=== PATIENT | male | born 1950 | race Caucasian/White ===

== ENCOUNTER 2016-10-01 13:13 | Inpatient (IN) | payer OTHER, MEDICARE ==
[2016-10-01] MEDS ORDERED: LABETALOL 5 MG/ML VIAL MDV IVP STA ×2 (13:30→15:42)
[2016-10-01] MEDS ORDERED: MORPHINE SULFATE 4 MG/ML SYRINGE IVP STA ×2 (13:30→14:41)
[2016-10-01] MEDS ORDERED: SODIUM CHLORIDE 0.9% 500 ML IV STA (13:30)
--- NOTE | 2016-10-01 13:33 | ED ---
General Adult HPI - General Chief complaint: Recheck/Abnormal Lab/Rx Stated complaint: HTN Time Seen by Provider: 10/01/16 13:14 Source: patient, EMS, RN notes reviewed, old records reviewed Mode of arrival: EMS Limitations: no limitations - History of Present Illness Initial comments: This is a 66-year-old male to the ER today for evaluation. This man presents for evaluation regarding her blood pressure noncontrolled pain. Patient Gris history of back pain history of chronic pain history of elevated blood pressure. States that his medication there were no help. He was in follow-up with neurologist as he is attempting to come off pain medications but still complaining of severe pain and severely elevated blood pressure. He was sent here for evaluation regarding elevated blood pressure of care than 200 systolic over 100 diastolic - Related Data Home Medications Medication Instructions Recorded Confirmed Carvedilol [Coreg] 12.5 mg PO BID 10/01/16 10/01/16 Gabapentin [Neurontin] 300 mg PO HS 10/01/16 10/01/16 Losartan Potassium 100 mg PO DAILY 10/01/16 10/01/16 fentaNYL [Duragesic 25MCG/HR] 25 mcg TRANSDERM Q72H 10/01/16 10/01/16 oxyCODONE-APAP 10-325MG [Percocet 1 tab PO Q6HR PRN 10/01/16 10/01/16 10-325 mg] Allergies Allergy/AdvReac Type Severity Reaction Status Date / Time No Known Allergies Allergy Unverified 10/01/16 13:57 Review of Systems ROS Statement: Those systems with pertinent positive or pertinent negative responses have been documented in the HPI. ROS Other: All systems not noted in ROS Statement are negative. Past Medical History Past Medical History: Hypertension Additional Past Medical History / Comment(s): chronic leg pain History of Any Multi-Drug Resistant Organisms: None Reported Past Surgical History: Orthopedic Surgery Past Psychological History: No Psychological Hx Reported Smoking Status: Current every day smoker Past Alcohol Use History: None Reported Past Drug Use History: None Reported General Exam Limitations: no limitations General appearance: alert, in no apparent distress Head exam: Present: atraumatic, normocephalic, normal inspection Eye exam: Present: normal appearance, PERRL, EOMI. Absent: scleral icterus, conjunctival injection, periorbital swelling ENT exam: Present: normal exam, mucous membranes moist Neck exam: Present: normal inspection. Absent: tenderness, meningismus, lymphadenopathy Respiratory exam: Present: normal lung sounds bilaterally. Absent: respiratory distress, wheezes, rales, rhonchi, stridor Cardiovascular Exam: Present: regular rate, normal rhythm, normal heart sounds. Absent: systolic murmur, diastolic murmur, rubs, gallop, clicks GI/Abdominal exam: Present: soft, normal bowel sounds. Absent: distended, tenderness, guarding, rebound, rigid Extremities exam: Present: normal inspection, full ROM, normal capillary refill. Absent: tenderness, pedal edema, joint swelling, calf tenderness Back exam: Present: normal inspection Neurological exam: Present: alert, oriented X3, CN II-XII intact Psychiatric exam: Present: normal affect, normal mood Skin exam: Present: warm, dry, intact, normal color. Absent: rash Course Vital Signs 10/01/16 10/01/16 10/01/16 13:18 13:23 13:55 Temperature 98.3 F Pulse Rate 65 74 69 Respiratory 18 18 Rate Blood Pressure 246/126 263/129 208/105 O2 Sat by Pulse 96 99 Oximetry 10/01/16 14:41 Temperature Pulse Rate 64 Respiratory 18 Rate Blood Pressure 233/113 O2 Sat by Pulse 97 Oximetry - Reevaluation(s) Reevaluation #1: 10/01/16 14:56 Syrup pressures removing with multiple medications Reevaluation #2: 10/01/16 14:56 Blood pressure improves the pain control Medical Decision Making - Medical Decision Making 66 now with recurrent pain medication withdrawal, severe pain as well as severe elevated blood pressure. Patient's blood pressure is 1 wanted control at this time. Patient will be discharged home - Lab Data Result diagrams: 10/01/16 13:43 10/01/16 13:43 Lab Results 10/01/16 10/01/16 Range/Units 13:43 13:43 WBC 9.6 (3.8-10.6) k/uL RBC 5.38 (4.30-5.90) m/uL Hgb 17.4 (13.0-17.5) gm/dL Hct 52.0 (39.0-53.0) % MCV 96.7 (80.0-100.0) fL MCH 32.3 (25.0-35.0) pg MCHC 33.4 (31.0-37.0) g/dL RDW 14.1 (11.5-15.5) % Plt Count 145 L (150-450) k/uL Neutrophils % 68 % Lymphocytes % 21 % Monocytes % 4 % Eosinophils % 5 % Basophils % 1 % Neutrophils # 6.5 (1.3-7.7) k/uL Lymphocytes # 2.0 (1.0-4.8) k/uL Monocytes # 0.4 (0-1.0) k/uL Eosinophils # 0.5 (0-0.7) k/uL Basophils # 0.1 (0-0.2) k/uL Sodium 141 (137-145) mmol/L Potassium 3.9 (3.5-5.1) mmol/L Chloride 105 (98-107) mmol/L Carbon Dioxide 27 (22-30) mmol/L Anion Gap 9 mmol/L BUN 15 (9-20) mg/dL Creatinine 0.97 (0.66-1.25) mg/dL Est GFR (MDRD) Af Amer >60 (>60 ml/min/1.73 sqM) Est GFR (MDRD) Non-Af >60 (>60 ml/min/1.73 sqM) Glucose 115 H (74-99) mg/dL Calcium 9.3 (8.4-10.2) mg/dL Phosphorus 3.2 (2.5-4.5) mg/dL Magnesium 1.9 (1.6-2.3) mg/dL Total Bilirubin 0.8 (0.2-1.3) mg/dL AST 30 (17-59) U/L ALT 42 (21-72) U/L Alkaline Phosphatase 67 (38-126) U/L Total Protein 6.8 (6.3-8.2) g/dL Albumin 4.1 (3.5-5.0) g/dL Disposition Clinical Impression: Hypertensive urgency Disposition: HOME SELF-CARE Condition: Good Instructions: Hypertension (ED), Hypertensive Crisis (ED), Chronic Hypertension (ED) Referrals: Valentine Langston MD [Primary Care Provider] - 1-2 days
[2016-10-01 13:56] LABS: Basophils # (A) 0.1 k/uL (0-0.2); Basophils % (A) 1 %; CHCM 35.2; Eosinophils # (A) 0.5 k/uL (0-0.7); Eosinophils % (A) 5 %; HDW 2.45; HGB 17.4 gm/dL (13.0-17.5); Luc # (Auto) 0.09; Luc % (Auto) 1; Lymphocytes % (A) 21 %; MCH 32.3 pg (25.0-35.0); MCHC 33.4 g/dL (31.0-37.0); MCV 96.7 fL (80.0-100.0); Mean Platelet Volume 8.1; Monocytes # (A) 0.4 k/uL (0-1.0); Monocytes % (A) 4 %; Neutrophils # (A) 6.5 k/uL (1.3-7.7); Neutrophils % (A) 68 %; RBC 5.38 m/uL (4.30-5.90); RDW 14.1 % (11.5-15.5); WBC 9.6 k/uL (3.8-10.6); WBC (Perox) 8.68
[2016-10-01 14:06] LABS: ALT 42 U/L (21-72); AST 30 U/L (17-59); Alkaline Phosphatase 67 U/L (38-126); Anion Gap 9 mmol/L; Blood Urea Nitrogen 15 mg/dL (9-20); Calcium 9.3 mg/dL (8.4-10.2); Carbon Dioxide 27 mmol/L (22-30); Chloride 105 mmol/L (98-107); Glucose 115 mg/dL (74-99); Magnesium 1.9 mg/dL (1.6-2.3); Non-African American GFR(MDRD) >60 (>60 ml/min/1.73 sqM); Phosphorous 3.2 mg/dL (2.5-4.5); Potassium 3.9 mmol/L (3.5-5.1); Sodium 141 mmol/L (137-145); Total Bilirubin 0.8 mg/dL (0.2-1.3); Total Protein 6.8 g/dL (6.3-8.2)
[2016-10-01] MEDS ORDERED: hydrALAZINE HCL 20 MG/ML 1 ML VIAL IVP STA (14:41)
[2016-10-01] MEDS ORDERED: cloNIDine HCL 0.1 MG TAB PO STA (14:41)
--- NOTE | 2016-10-01 14:57 | XR ---
EXAMINATION TYPE: XR chest 2V DATE OF EXAM: 10/01/2016 COMPARISON: NONE HISTORY: Weakness, hypertension TECHNIQUE: Frontal and lateral views of the chest are obtained on 3 images. FINDINGS: There is no focal air space opacity, pleural effusion, or pneumothorax seen. The cardiac silhouette size is within normal limits. There are overlying cardiac leads. There is a spinal curvat ure. Prominent lung volume could be indicative of COPD. The osseous structures are intact. IMPRESSION: No acute cardiopulmonary process.
[2016-10-01] MEDS ORDERED: HYDROmorphone 1 MG/ML 1 ML SYRINGE IVP STA (15:42)
[2016-10-01] MEDS ORDERED: hydrALAZINE HCL 20 MG/ML 1 ML VIAL IVP PRN (16:25)
[2016-10-01] MEDS ORDERED: ENALAPRILAT 1.25 MG/ML 1 ML VIAL IVP STA (16:25)
[2016-10-01] MEDS ORDERED: SODIUM CHLORIDE 0.9% 1,000 ML IV ONE (16:26)
--- NOTE | 2016-10-01 16:29 | ED ---
Medical Decision Making - Medical Decision Making 66 not ER for evaluation of elevated blood pressure with continued elevated blood pressure despite multiple oral and IV medications here in emergency room, patient will be admitted for stricter blood pressure control, will consult Dr. Laguna's patient does see Dr. Gamboa so far an outpatient basis regarding severely elevated blood pressure - Lab Data Result diagrams: 10/03/16 04:31 10/03/16 04:31 Lab Results 10/01/16 10/01/16 Range/Units 13:43 13:43 WBC 9.6 (3.8-10.6) k/uL RBC 5.38 (4.30-5.90) m/uL Hgb 17.4 (13.0-17.5) gm/dL Hct 52.0 (39.0-53.0) % MCV 96.7 (80.0-100.0) fL MCH 32.3 (25.0-35.0) pg MCHC 33.4 (31.0-37.0) g/dL RDW 14.1 (11.5-15.5) % Plt Count 145 L (150-450) k/uL Neutrophils % 68 % Lymphocytes % 21 % Monocytes % 4 % Eosinophils % 5 % Basophils % 1 % Neutrophils # 6.5 (1.3-7.7) k/uL Lymphocytes # 2.0 (1.0-4.8) k/uL Monocytes # 0.4 (0-1.0) k/uL Eosinophils # 0.5 (0-0.7) k/uL Basophils # 0.1 (0-0.2) k/uL Sodium 141 (137-145) mmol/L Potassium 3.9 (3.5-5.1) mmol/L Chloride 105 (98-107) mmol/L Carbon Dioxide 27 (22-30) mmol/L Anion Gap 9 mmol/L BUN 15 (9-20) mg/dL Creatinine 0.97 (0.66-1.25) mg/dL Est GFR (MDRD) Af Amer >60 (>60 ml/min/1.73 sqM) Est GFR (MDRD) Non-Af >60 (>60 ml/min/1.73 sqM) Glucose 115 H (74-99) mg/dL Calcium 9.3 (8.4-10.2) mg/dL Phosphorus 3.2 (2.5-4.5) mg/dL Magnesium 1.9 (1.6-2.3) mg/dL Total Bilirubin 0.8 (0.2-1.3) mg/dL AST 30 (17-59) U/L ALT 42 (21-72) U/L Alkaline Phosphatase 67 (38-126) U/L Total Protein 6.8 (6.3-8.2) g/dL Albumin 4.1 (3.5-5.0) g/dL Disposition Clinical Impression: Hypertensive urgency, Uncontrolled hypertension Disposition: ADMITTED IP TO THIS [facility] Condition: Good
[2016-10-01] MEDS ORDERED: cloNIDine 0.3 MG/24HR PATCH 1 PATCH PATCH TRANSDERM SCH (16:30)
[2016-10-01 21:00] VITALS: BMI 25.0
[2016-10-01] MEDS: FUROSEMIDE 10 MG/ML 2 ML VIAL IV SCH (21:35)
[2016-10-01] MEDS: HYDROmorphone 1 MG/ML 1 ML SYRINGE IVP PRN (22:47)
[2016-10-02 04:48] LABS: CH 32.5; CHCM 34.5; HCT 47.7 % (39.0-53.0); HDW 2.46; HGB 16.3 gm/dL (13.0-17.5); MCH 32.2 pg (25.0-35.0); MCHC 34.1 g/dL (31.0-37.0); MCV 94.5 fL (80.0-100.0); Mean Platelet Volume 7.7; RBC 5.04 m/uL (4.30-5.90); RDW 13.1 % (11.5-15.5); WBC 7.8 k/uL (3.8-10.6)
[2016-10-02 05:03] LABS: Anion Gap 8 mmol/L; Blood Urea Nitrogen 16 mg/dL (9-20); Calcium 9.1 mg/dL (8.4-10.2); Carbon Dioxide 29 mmol/L (22-30); Chloride 104 mmol/L (98-107); Glucose 99 mg/dL (74-99); Magnesium 1.9 mg/dL (1.6-2.3); Non-African American GFR(MDRD) >60 (>60 ml/min/1.73 sqM); Phosphorous 3.6 mg/dL (2.5-4.5); Potassium 3.2 mmol/L (3.5-5.1); Sodium 141 mmol/L (137-145)
[2016-10-02] MEDS: HYDROmorphone 1 MG/ML 1 ML SYRINGE IVP PRN ×2 (08:04→16:13)
[2016-10-02] MEDS: ENOXAPARIN 40 MG/0.4 ML SYRINGE SQ SCH (08:06)
[2016-10-02] MEDS: POTASSIUM CHLORIDE ER 20 MEQ TAB.ER PO SCH ×2 (08:06→10:04)
[2016-10-02] MEDS ORDERED: LOSARTAN 50 MG TAB PO SCH (09:45)
[2016-10-02] MEDS ORDERED: LABETALOL 5 MG/ML VIAL MDV IVP PRN (09:47)
[2016-10-02] MEDS: CARVEDILOL 12.5 MG TAB PO SCH ×2 (10:04→17:45)
[2016-10-02] MEDS: CLEVIDIPINE BUTYRATE 25 MG in EMPTY BAG 1 BAG IV SCH ×2 (10:05→12:58)
[2016-10-02] MEDS: SODIUM CHLORIDE 0.9% 1,000 ML IV SCH (10:07)
[2016-10-02 10:19] LABS: Creatine Kinase 110 U/L (55-170)
--- NOTE | 2016-10-02 10:22 | P.CNPUL ---
History of Present Illness Consult date: 10/02/16 Reason for consult: other Chief complaint: Elevated blood pressure History of present illness: Consult dated 10/02/2016 This a very pleasant 66-year-old male with a history of chronic pain and hypertension. Previously was on Coreg 12.5 mg twice a day and losartan 100 mg for his blood pressure control. Apparently the patient been somewhat noncompliant with medications and apparently was noted to have very high blood pressures in the emergency room. He satisfied all the criteria for hypertensive urgency/emergency. There was no apparent end organ involvement so is more likely hypertensive urgency. His systolic blood pressure was more than 200 and his diastolic blood pressure was more than 100. He denies any chest pain chest discomfort no shortness of breath no visual disturbance no dizziness no headache no blurred vision. No chest pain or no other complaints for that matter. Nothing that would suggest hypertensive emergency. The patient's currently resting comfortably in the ICU. He was apparently seen by one of the ER doctors yesterday. I was never called about the admission. I did alert Dr. Quijano about this. Review of Systems A 12 point review of systems is essentially negative save for chronic pain. Past Medical History Past Medical History: Hyperlipidemia, Hypertension Additional Past Medical History / Comment(s): chronic leg pain History of Any Multi-Drug Resistant Organisms: None Reported Past Surgical History: Orthopedic Surgery Past Psychological History: No Psychological Hx Reported Smoking Status: Former smoker Past Alcohol Use History: None Reported Past Drug Use History: None Reported Medications and Allergies Home Medications Medication Instructions Recorded Confirmed Type Carvedilol [Coreg] 12.5 mg PO BID 10/01/16 10/01/16 History Gabapentin [Neurontin] 300 mg PO HS 10/01/16 10/01/16 History Losartan Potassium 100 mg PO DAILY 10/01/16 10/01/16 History fentaNYL [Duragesic 25MCG/HR] 25 mcg TRANSDERM Q72H 10/01/16 10/01/16 History oxyCODONE-APAP 10-325MG [Percocet 1 tab PO Q6HR PRN 10/01/16 10/01/16 History 10-325 mg] Allergies Allergy/AdvReac Type Severity Reaction Status Date / Time No Known Allergies Allergy Unverified 10/01/16 13:57 Physical Exam Osteopathic Statement: *. No significant issues noted on an osteopathic structural exam other than those noted in the History and Physical/Consult. Vitals: Vital Signs Temp Pulse Pulse Resp BP BP Pulse Ox 10/02/16 10:00 67 17 200/97 98 10/02/16 09:45 68 15 237/108 92 L 10/02/16 09:30 69 22 205/103 97 10/02/16 09:00 67 11 L 169/95 10/02/16 08:00 98.5 F 57 L 17 205/105 98 10/02/16 07:10 51 L 9 L 169/87 97 10/02/16 07:00 48 L 8 L 166/95 98 10/02/16 06:50 51 L 11 L 166/95 97 10/02/16 06:40 48 L 166/95 96 10/02/16 06:30 47 L 190/88 96 10/02/16 06:20 55 L 190/88 96 10/02/16 06:10 50 L 190/88 98 10/02/16 06:00 53 L 12 159/97 97 10/02/16 05:50 51 L 10 L 159/97 97 10/02/16 05:40 63 9 L 159/97 97 10/02/16 05:30 51 L 12 183/94 97 10/02/16 05:20 48 L 10 L 183/94 97 10/02/16 05:10 50 L 7 L 183/94 99 10/02/16 05:00 49 L 13 189/88 96 10/02/16 04:50 47 L 11 L 189/88 97 10/02/16 04:40 49 L 10 L 189/88 95 10/02/16 04:30 176/91 10/02/16 04:20 176/91 95 10/02/16 04:10 48 L 11 L 176/91 97 10/02/16 04:00 56 L 12 186/79 97 10/02/16 03:50 51 L 11 L 186/79 97 10/02/16 03:40 53 L 13 173/79 97 10/02/16 03:30 53 L 17 169/93 98 10/02/16 03:20 51 L 9 L 169/93 98 10/02/16 03:10 63 29 H 155/72 94 L 10/02/16 03:00 51 L 8 L 168/85 97 10/02/16 02:50 50 L 12 168/85 97 10/02/16 02:40 54 L 11 L 140/74 94 L 10/02/16 02:30 54 L 11 L 141/76 94 L 10/02/16 02:20 56 L 11 L 141/76 94 L 10/02/16 02:10 55 L 10 L 155/83 95 10/02/16 02:00 56 L 11 L 159/82 94 L 10/02/16 01:50 60 11 L 159/82 94 L 10/02/16 01:40 62 15 171/83 94 L 10/02/16 01:30 54 L 11 L 155/84 95 10/02/16 01:20 54 L 11 L 155/84 94 L 10/02/16 01:10 58 L 11 L 149/72 97 10/02/16 01:00 55 L 12 145/76 96 10/02/16 00:50 55 L 9 L 145/76 97 10/02/16 00:40 56 L 12 167/84 97 10/02/16 00:30 57 L 11 L 161/84 97 10/02/16 00:20 54 L 13 161/84 97 10/02/16 00:10 58 L 10 L 176/80 96 10/02/16 00:00 61 15 164/84 95 10/01/16 23:50 58 L 12 164/84 95 10/01/16 23:40 54 L 11 L 168/84 97 10/01/16 23:30 57 L 11 L 164/83 97 10/01/16 23:20 58 L 12 164/83 96 10/01/16 23:10 60 14 162/85 96 10/01/16 23:00 65 11 L 171/88 97 10/01/16 22:50 65 11 L 171/88 97 10/01/16 22:40 61 12 180/94 98 10/01/16 22:30 61 15 190/100 97 10/01/16 22:20 62 12 190/100 98 10/01/16 22:10 190/100 10/01/16 22:00 61 177/91 98 10/01/16 21:50 63 14 177/91 98 10/01/16 21:40 63 19 207/113 97 10/01/16 21:30 66 19 189/96 99 10/01/16 21:20 66 16 189/96 99 10/01/16 21:19 65 30 H 189/96 99 10/01/16 21:10 70 27 H 197/93 99 10/01/16 21:00 71 14 176/92 99 10/01/16 20:50 75 47 H 176/92 94 L 10/01/16 20:40 60 15 172/100 98 10/01/16 20:30 58 L 14 176/89 98 10/01/16 20:20 66 13 176/89 97 10/01/16 20:10 67 15 210/91 97 10/01/16 20:00 69 12 183/92 98 10/01/16 19:50 70 12 183/92 97 10/01/16 19:40 66 16 156/83 98 10/01/16 19:30 66 18 163/82 98 10/01/16 19:20 72 16 163/82 97 10/01/16 19:10 68 18 173/91 98 10/01/16 19:00 99.1 F 66 17 163/90 97 10/01/16 18:50 65 15 163/90 96 10/01/16 18:40 65 11 L 164/87 97 10/01/16 18:30 83 12 180/96 98 10/01/16 18:20 71 10 L 180/96 98 10/01/16 18:17 98.5 F 65 20 176/92 10/01/16 18:16 65 10/01/16 18:10 71 18 161/92 95 10/01/16 17:39 69 18 187/89 97 10/01/16 17:23 67 18 190/94 96 10/01/16 17:05 70 18 206/104 97 10/01/16 16:36 68 18 202/106 97 10/01/16 16:05 68 18 213/111 98 10/01/16 15:56 68 18 223/109 99 10/01/16 14:55 66 18 226/108 97 10/01/16 14:41 64 18 233/113 97 10/01/16 13:55 69 208/105 10/01/16 13:23 74 18 263/129 99 10/01/16 13:18 98.3 F 66 18 246/126 96 Intake and Output 10/01/16 10/02/16 10/02/16 22:59 06:59 14:59 Intake Total 300 800 240 Output Total 0 0 Balance 300 800 240 Intake: IV 140 Sodium Chloride 0.9% 1, 120 000 ml @ 100 mls/hr IV . Q10H ONE Rx#:[id number] Sodium Chloride 0.9% 1, 20 000 ml @ 20 mls/hr IV . Q24H [place] Rx#:[id number] Intake, IV Titration 300 800 100 Amount Sodium Chloride 0.9% 1, 300 800 100 000 ml @ 100 mls/hr IV . Q10H ONE Rx#:[id number] Output: Urine 0 0 Other: Voiding Method Toilet Toilet Toilet # Voids 1 0 1 Weight 86.183 kg 75.7 kg No acute distress, oriented 3. HEENT examination is grossly unremarkable. Mucous membranes are moist. No oral lesions. Neck supple. Full range of motion. No adenopathy or megaly. Cardiovascular examination reveals regular rhythm rate. S1-S2 normal. No S3- S4 or murmur. Lungs reveal diminished breath sounds. No wheezes or rhonchi. No crackles. Abdomen soft bowel sounds are heard. No masses or tenderness. Extremities are intact. No cyanosis clubbing or edema. Skin without rash. Neurologic examination is nonfocal. Results - Laboratory Findings CBC and BMP: 10/02/16 04:10 10/02/16 04:10 Abnormal lab findings: Abnormal Labs 10/01/16 10/01/16 10/02/16 13:43 13:43 04:10 Plt Count 145 L 140 L Potassium Glucose 115 H 10/02/16 04:10 Plt Count Potassium 3.2 L Glucose - Diagnostic Findings Chest x-ray: image reviewed (Labs x-rays a medications are all reviewed.) Assessment and Plan (1) Hypertensive urgency Status: Acute (2) Uncontrolled hypertension Status: Acute Plan: Plan dated 10/02/2016 The patient's currently not on any supplemental oxygen. His IV is appointment 900 mL an hour. He'll be turned down to KVO. We'll put him on Klonopin the Pleurx to titrate blood pressure to less than 160 systolic and less than 110 diastolic. The patient will have a cardiology consultation and echocardiogram. We'll do some cardiac enzymes. We'll DC the hydralazine and the clonidine patch. We'll use IV labetalol for additional blood pressure support. We'll get him back on his Coreg 12.5 mg twice a day and losartan 100 mg a day. Time with Patient: Greater than 30
[2016-10-02 10:33] LABS: Troponin I <0.012 ng/mL (0.000-0.034)
[2016-10-02 10:44] LABS: Creatine Kinase MB 1.7 ng/mL (0.0-2.4)
[2016-10-02] MEDS ORDERED: LOSARTAN 50 MG TAB PO STA (11:26)
--- NOTE | 2016-10-02 12:04 | P.CRDCN ---
History of Present Illness Consult reason: hypertension History of present illness: 66-year-old male patient who presented with elevated blood pressures. He states he was taking his blood pressure medications including losartan 100 mg by mouth daily and carvedilol 12.5 mg twice daily. He was tapering off his fentanyl. He denied any chest discomfort no undue shortness of breath he had no headache no blurring of vision no neurologic symptoms no shortness of breath. Currently his blood pressure is still elevated between 170 290 mmHg systolic. He is on an IV drip to control his blood pressure he is asymptomatic and lying comfortably He is a current smoker, denies alcohol use Past history of dyslipidemia and hypertension and chronic leg pain on multiple pain medications NO KNOWN DRUG ALLERGIES Review of systems: No fever chills or rigors, no cough, phlegm or expectoration , no nausea, vomiting or diarrhea, no hematuria, dysuria, no musculoskeletal complaints, no strokes or seizures, no skin lesions. On examination his blood pressure is elevated as stated heart rates are in the normal range with occasional PVCs, apparently carvedilol was started at [facility] for PVCs after the coronary angiogram which showed normal coronary arteries several years back Head negative examination is normal no JVD no thyromegaly no carotid bruits Normal heart sounds normal S1 normal S2 no murmurs no gallops no rub Breath sounds are normal no rhonchi no crackles Abdomen soft nontender There are no abdominal bruits noted Extremities warm no edema Impression Hypertensive urgency No evidence for acute systolic dysfunction, acute renal failure, acute neurologic symptoms Dyslipidemia Suggest Increase losartan to 150 mg by mouth daily in the morning Add amlodipine 10 mg by mouth daily in the evening Continue carvedilol 12.5 mg twice daily Renal artery Dopplers, serum metanephrines, aldosterone, cortisol him a TSH and lipid panel 2-D echo and Doppler study today Continue ICU monitoring today Past Medical History Past Medical History: Hyperlipidemia, Hypertension Additional Past Medical History / Comment(s): chronic leg pain History of Any Multi-Drug Resistant Organisms: None Reported Past Surgical History: Orthopedic Surgery Past Psychological History: No Psychological Hx Reported Smoking Status: Former smoker Past Alcohol Use History: None Reported Past Drug Use History: None Reported Medications and Allergies Home Medications Medication Instructions Recorded Confirmed Type Carvedilol [Coreg] 12.5 mg PO BID 10/01/16 10/01/16 History Gabapentin [Neurontin] 300 mg PO HS 10/01/16 10/01/16 History RX: Losartan Potassium 100 mg PO DAILY 10/01/16 10/01/16 History fentaNYL [Duragesic 25MCG/HR] 25 mcg TRANSDERM Q72H 10/01/16 10/01/16 History oxyCODONE-APAP 10-325MG [Percocet 1 tab PO Q6HR PRN 10/01/16 10/01/16 History 10-325 mg] Allergies Allergy/AdvReac Type Severity Reaction Status Date / Time No Known Allergies Allergy Unverified 10/01/16 13:57 Physical Exam Vitals: Vital Signs Temp Pulse Pulse Resp BP BP Pulse Ox 10/02/16 10:00 67 17 200/97 98 10/02/16 09:45 68 15 237/108 92 L 10/02/16 09:30 69 22 205/103 97 10/02/16 09:00 67 11 L 169/95 10/02/16 08:00 98.5 F 57 L 17 205/105 98 10/02/16 07:10 51 L 9 L 169/87 97 10/02/16 07:00 48 L 8 L 166/95 98 10/02/16 06:50 51 L 11 L 166/95 97 10/02/16 06:40 48 L 166/95 96 10/02/16 06:30 47 L 190/88 96 10/02/16 06:20 55 L 190/88 96 10/02/16 06:10 50 L 190/88 98 10/02/16 06:00 53 L 12 159/97 97 10/02/16 05:50 51 L 10 L 159/97 97 10/02/16 05:40 63 9 L 159/97 97 10/02/16 05:30 51 L 12 183/94 97 10/02/16 05:20 48 L 10 L 183/94 97 10/02/16 05:10 50 L 7 L 183/94 99 10/02/16 05:00 49 L 13 189/88 96 10/02/16 04:50 47 L 11 L 189/88 97 10/02/16 04:40 49 L 10 L 189/88 95 10/02/16 04:30 176/91 10/02/16 04:20 176/91 95 10/02/16 04:10 48 L 11 L 176/91 97 10/02/16 04:00 56 L 12 186/79 97 10/02/16 03:50 51 L 11 L 186/79 97 10/02/16 03:40 53 L 13 173/79 97 10/02/16 03:30 53 L 17 169/93 98 10/02/16 03:20 51 L 9 L 169/93 98 10/02/16 03:10 63 29 H 155/72 94 L 10/02/16 03:00 51 L 8 L 168/85 97 10/02/16 02:50 50 L 12 168/85 97 10/02/16 02:40 54 L 11 L 140/74 94 L 10/02/16 02:30 54 L 11 L 141/76 94 L 10/02/16 02:20 56 L 11 L 141/76 94 L 10/02/16 02:10 55 L 10 L 155/83 95 10/02/16 02:00 56 L 11 L 159/82 94 L 10/02/16 01:50 60 11 L 159/82 94 L 10/02/16 01:40 62 15 171/83 94 L 10/02/16 01:30 54 L 11 L 155/84 95 10/02/16 01:20 54 L 11 L 155/84 94 L 10/02/16 01:10 58 L 11 L 149/72 97 10/02/16 01:00 55 L 12 145/76 96 10/02/16 00:50 55 L 9 L 145/76 97 10/02/16 00:40 56 L 12 167/84 97 10/02/16 00:30 57 L 11 L 161/84 97 10/02/16 00:20 54 L 13 161/84 97 10/02/16 00:10 58 L 10 L 176/80 96 10/02/16 00:00 61 15 164/84 95 10/01/16 23:50 58 L 12 164/84 95 10/01/16 23:40 54 L 11 L 168/84 97 10/01/16 23:30 57 L 11 L 164/83 97 10/01/16 23:20 58 L 12 164/83 96 10/01/16 23:10 60 14 162/85 96 10/01/16 23:00 65 11 L 171/88 97 10/01/16 22:50 65 11 L 171/88 97 10/01/16 22:40 61 12 180/94 98 10/01/16 22:30 61 15 190/100 97 10/01/16 22:20 62 12 190/100 98 10/01/16 22:10 190/100 10/01/16 22:00 61 177/91 98 10/01/16 21:50 63 14 177/91 98 10/01/16 21:40 63 19 207/113 97 10/01/16 21:30 66 19 189/96 99 10/01/16 21:20 66 16 189/96 99 10/01/16 21:19 65 30 H 189/96 99 10/01/16 21:10 70 27 H 197/93 99 10/01/16 21:00 71 14 176/92 99 10/01/16 20:50 75 47 H 176/92 94 L 10/01/16 20:40 60 15 172/100 98 10/01/16 20:30 58 L 14 176/89 98 10/01/16 20:20 66 13 176/89 97 10/01/16 20:10 67 15 210/91 97 10/01/16 20:00 69 12 183/92 98 10/01/16 19:50 70 12 183/92 97 10/01/16 19:40 66 16 156/83 98 10/01/16 19:30 66 18 163/82 98 10/01/16 19:20 72 16 163/82 97 10/01/16 19:10 68 18 173/91 98 10/01/16 19:00 99.1 F 66 17 163/90 97 10/01/16 18:50 65 15 163/90 96 10/01/16 18:40 65 11 L 164/87 97 10/01/16 18:30 83 12 180/96 98 10/01/16 18:20 71 10 L 180/96 98 10/01/16 18:17 98.5 F 65 20 176/92 10/01/16 18:16 65 10/01/16 18:10 71 18 161/92 95 10/01/16 17:39 69 18 187/89 97 10/01/16 17:23 67 18 190/94 96 10/01/16 17:05 70 18 206/104 97 10/01/16 16:36 68 18 202/106 97 10/01/16 16:05 68 18 213/111 98 10/01/16 15:56 68 18 223/109 99 10/01/16 14:55 66 18 226/108 97 10/01/16 14:41 64 18 233/113 97 10/01/16 13:55 69 208/105 10/01/16 13:23 74 18 263/129 99 10/01/16 13:18 98.3 F 65 18 246/126 96 Intake and Output 10/01/16 10/02/16 10/02/16 22:59 06:59 14:59 Intake Total 300 800 274.700 Output Total 0 0 Balance 300 800 274.700 Intake: IV 160 Sodium Chloride 0.9% 1, 120 000 ml @ 100 mls/hr IV . Q10H [facility] Rx#:[id number] Sodium Chloride 0.9% 1, 40 000 ml @ 20 mls/hr IV . Q24H [place] Rx#:[id number] Intake, IV Titration 300 800 114.700 Amount Clevidipine Butyrate 25 14.700 mg In Empty Bag 1 bag @ 1 MG/HR 2 mls/hr IV .Q24H [place] Rx#:[id number] Sodium Chloride 0.9% 1, 300 800 100 000 ml @ 100 mls/hr IV . Q10H [facility] Rx#:[id number] Output: Urine 0 0 Other: Voiding Method Toilet Toilet Toilet # Voids 1 0 1 # Bowel Movements 1 Weight 86.183 kg 75.7 kg Results 10/02/16 04:10 10/02/16 04:10 Cardiac Enzymes 10/01/16 10/02/16 Range/Units 13:43 04:10 AST 30 (17-59) U/L CK-MB (CK-2) 1.7 (0.0-2.4) ng/mL Troponin I <0.012 (0.000-0.034) ng/mL CBC 10/01/16 10/02/16 Range/Units 13:43 04:10 WBC 9.6 7.8 (3.8-10.6) k/uL RBC 5.38 5.04 (4.30-5.90) m/uL Hgb 17.4 16.3 (13.0-17.5) gm/dL Hct 52.0 47.7 (39.0-53.0) % Plt Count 145 L 140 L (150-450) k/uL Comprehensive Metabolic Panel 10/01/16 10/02/16 Range/Units 13:43 04:10 Sodium 141 141 (137-145) mmol/L Potassium 3.9 3.2 L (3.5-5.1) mmol/L Chloride 105 104 (98-107) mmol/L Carbon Dioxide 27 29 (22-30) mmol/L BUN 15 16 (9-20) mg/dL Creatinine 0.97 1.10 (0.66-1.25) mg/dL Glucose 115 H 99 (74-99) mg/dL Calcium 9.3 9.1 (8.4-10.2) mg/dL AST 30 (17-59) U/L ALT 42 (21-72) U/L Alkaline Phosphatase 67 (38-126) U/L Total Protein 6.8 (6.3-8.2) g/dL Albumin 4.1 (3.5-5.0) g/dL Current Medications Generic Name Dose Route Start Last Admin Trade Name Freq PRN Reason Stop Dose Admin Amlodipine Besylate 10 mg 10/02/16 21:00 Norvasc PO HS [place] Carvedilol 12.5 mg 10/02/16 09:45 10/02/16 10:04 Coreg PO 12.5 mg AC-BID [place] Administration Enoxaparin Sodium 40 mg 10/02/16 09:00 10/02/16 08:06 Lovenox SQ 40 mg DAILY [place] Administration Hydromorphone HCl 1 mg 10/01/16 21:51 10/02/16 08:04 Dilaudid IVP 1 mg Q4HR PRN Administration Severe Pain Clevidipine 25 mg/ IV Solution 50 mls @ 2 mls/hr 10/02/16 10:00 10/02/16 11: 33 IV 6 mg/hr .Q24H [place] 12 mls/hr Protocol Titration 1 MG/HR Sodium Chloride 1,000 mls @ 20 mls/hr 10/02/16 10:00 10/02/16 10:07 Saline 0.9% IV 20 mls/hr .Q24H [place] Administration Labetalol HCl 20 mg 10/02/16 09:47 Trandate IVP Q2H PRN Blood Pressure - High Labetalol HCl 40 mg 10/02/16 09:47 Trandate IVP Q2H PRN Blood Pressure - High Losartan Potassium 150 mg 10/03/16 09:00 Cozaar PO DAILY [facility] Morphine Sulfate 4 mg 10/01/16 16:25 Morphine Sulfate (Inj) IVP Q4HR PRN Moderate Pain Intake and Output 10/01/16 10/02/16 10/02/16 22:59 06:59 14:59 Intake Total 300 800 274.700 Output Total 0 0 Balance 300 800 274.700 Intake: IV 160 Sodium Chloride 0.9% 1, 120 000 ml @ 100 mls/hr IV . Q10H [facility] Rx#:[id number] Sodium Chloride 0.9% 1, 40 000 ml @ 20 mls/hr IV . Q24H [facility] Rx#:[id number] Intake, IV Titration 300 800 114.700 Amount Clevidipine Butyrate 25 14.700 mg In Empty Bag 1 bag @ 1 MG/HR 2 mls/hr IV .Q24H [facility] Rx#:[id number] Sodium Chloride 0.9% 1, 300 800 100 000 ml @ 100 mls/hr IV . Q10H [facility] Rx#:[id number] Output: Urine 0 0 Other: Voiding Method Toilet Toilet Toilet # Voids 1 0 1 # Bowel Movements 1 Weight 86.183 kg 75.7 kg 10/02/16 04:10 10/02/16 04:10
[2016-10-02] MEDS: MORPHINE SULFATE 4 MG/ML SYRINGE IVP PRN ×2 (12:41→20:10)
[2016-10-02 13:09] LABS: Potassium 3.7 mmol/L (3.5-5.1)
--- NOTE | 2016-10-02 16:23 | P.HPIM ---
History of Present Illness H&P Date: 10/02/16 Chief Complaint: Hypertensive urgency sent from 's office Mr. Jones is a 66-year-old male with a known history of hypertension hyperlipidemia and chronic leg pain was sent from neurologists office with uncontrolled hypertension. Patient was found to be in hypertensive urgency when he came to ER. Patient does take Coreg and losartan at home. patient is on chronic pain medications with fentanyl patch and Percocet for his chronic leg pain. Patient was taking 100 g of fentanyl patch and has been cutting down to 25 g. Patient says that he had a work-related neck injury injury about 10 years back and will and has seen multiple physicians and also had imazings including the MRI previously. He went to see neurologist in the office for his right leg pain. Patient was found to have hypertensive urgency and was sent to ER. Patient has been taking blood pressure medications for the past 10 years. Patient otherwise denied any complaints of chest pain OF SHORT OF NO HEADACHE OR DIZZINESS. NO NAUSEA VOMITING OR ABDOMINAL PAIN. BREATH. No recent illnesses. Patient is currently being monitored in the MICU and being worked up for secondary hypertension. His TSH level is 0.461 and cortisol level 4 2-D echo and renal arterial duplex was ordered. Serum catecholamines and Aldosterone level was ordered. EKG showed sinus bradycardia with heart rate of 59 Chest x-ray showed no acute cardiopulmonary process. Review of Systems Constitutional: Patient denies any fever or chills . No generalized weakness or weight loss. Abdomen: Patient denied nausea vomiting and diarrhea and abdominal pain. Cardiovascular: Patient denies any chest pain or short of breath no palpitations. Respiratory: patient denied any cough is from production. No shortness of breath Neurologic: Patient denied any numbness or tingling headache. Musculoskeletal: Patient denies any complaints of joint swelling or deformity. Complains of leg pain and right-sided Skin: Negative Psychiatric: Negative Endocrine: No heat or cold intolerance. No recent weight gain. Genitourinary: No dysuria or hematuria. All other 14 point ROS negative except the above Past Medical History Past Medical History: Hyperlipidemia, Hypertension Additional Past Medical History / Comment(s): chronic leg pain History of Any Multi-Drug Resistant Organisms: None Reported Past Surgical History: Orthopedic Surgery Past Psychological History: No Psychological Hx Reported Smoking Status: Former smoker Past Alcohol Use History: None Reported Past Drug Use History: None Reported Medications and Allergies Home Medications Medication Instructions Recorded Confirmed Type Carvedilol [Coreg] 12.5 mg PO BID 10/01/16 10/01/16 History Gabapentin [Neurontin] 300 mg PO HS 10/01/16 10/01/16 History Losartan Potassium 100 mg PO DAILY 10/01/16 10/01/16 History fentaNYL [Duragesic 25MCG/HR] 25 mcg TRANSDERM Q72H 10/01/16 10/01/16 History oxyCODONE-APAP 10-325MG [Percocet 1 tab PO Q6HR PRN 10/01/16 10/01/16 History 10-325 mg] Allergies Allergy/AdvReac Type Severity Reaction Status Date / Time No Known Allergies Allergy Unverified 10/01/16 13:57 Physical Exam Vitals: Vital Signs Temp Pulse Pulse Resp BP BP Pulse Ox 10/02/16 14:00 74 14 149/80 10/02/16 13:45 78 25 H 158/82 10/02/16 13:30 76 15 157/78 10/02/16 13:15 75 16 170/87 10/02/16 13:00 69 26 H 193/93 97 10/02/16 12:45 72 17 174/93 10/02/16 12:30 77 18 152/81 10/02/16 12:15 65 13 150/79 10/02/16 12:00 98.3 F 70 26 H 159/82 98 10/02/16 11:45 73 16 159/81 10/02/16 11:15 76 18 167/83 10/02/16 11:00 69 16 168/84 92 L 10/02/16 10:45 75 16 166/82 10/02/16 10:30 69 17 187/91 10/02/16 10:15 65 18 195/92 10/02/16 10:00 67 17 200/97 98 10/02/16 09:45 68 15 237/108 92 L 10/02/16 09:30 69 22 205/103 97 10/02/16 09:00 67 11 L 169/95 10/02/16 08:00 98.5 F 57 L 17 205/105 98 10/02/16 07:10 51 L 9 L 169/87 97 10/02/16 07:00 48 L 8 L 166/95 98 10/02/16 06:50 51 L 11 L 166/95 97 10/02/16 06:40 48 L 166/95 96 10/02/16 06:30 47 L 190/88 96 10/02/16 06:20 55 L 190/88 96 10/02/16 06:10 50 L 190/88 98 10/02/16 06:00 53 L 12 159/97 97 10/02/16 05:50 51 L 10 L 159/97 97 10/02/16 05:40 63 9 L 159/97 97 10/02/16 05:30 51 L 12 183/94 97 10/02/16 05:20 48 L 10 L 183/94 97 10/02/16 05:10 50 L 7 L 183/94 99 10/02/16 05:00 49 L 13 189/88 96 10/02/16 04:50 47 L 11 L 189/88 97 10/02/16 04:40 49 L 10 L 189/88 95 10/02/16 04:30 176/91 10/02/16 04:20 176/91 95 10/02/16 04:10 48 L 11 L 176/91 97 10/02/16 04:00 56 L 12 186/79 97 10/02/16 03:50 51 L 11 L 186/79 97 10/02/16 03:40 53 L 13 173/79 97 10/02/16 03:30 53 L 17 169/93 98 10/02/16 03:20 51 L 9 L 169/93 98 10/02/16 03:10 63 29 H 155/72 94 L 10/02/16 03:00 51 L 8 L 168/85 97 10/02/16 02:50 50 L 12 168/85 97 10/02/16 02:40 54 L 11 L 140/74 94 L 10/02/16 02:30 54 L 11 L 141/76 94 L 10/02/16 02:20 56 L 11 L 141/76 94 L 10/02/16 02:10 55 L 10 L 155/83 95 10/02/16 02:00 56 L 11 L 159/82 94 L 10/02/16 01:50 60 11 L 159/82 94 L 10/02/16 01:40 62 15 171/83 94 L 10/02/16 01:30 54 L 11 L 155/84 95 10/02/16 01:20 54 L 11 L 155/84 94 L 10/02/16 01:10 58 L 11 L 149/72 97 10/02/16 01:00 55 L 12 145/76 96 10/02/16 00:50 55 L 9 L 145/76 97 10/02/16 00:40 56 L 12 167/84 97 10/02/16 00:30 57 L 11 L 161/84 97 10/02/16 00:20 54 L 13 161/84 97 10/02/16 00:10 58 L 10 L 176/80 96 10/02/16 00:00 61 15 164/84 95 10/01/16 23:50 58 L 12 164/84 95 10/01/16 23:40 54 L 11 L 168/84 97 10/01/16 23:30 57 L 11 L 164/83 97 10/01/16 23:20 58 L 12 164/83 96 10/01/16 23:10 60 14 162/85 96 10/01/16 23:00 65 11 L 171/88 97 10/01/16 22:50 65 11 L 171/88 97 10/01/16 22:40 61 12 180/94 98 10/01/16 22:30 61 15 190/100 97 10/01/16 22:20 62 12 190/100 98 10/01/16 22:10 190/100 10/01/16 22:00 61 177/91 98 10/01/16 21:50 63 14 177/91 98 10/01/16 21:40 63 19 207/113 97 10/01/16 21:30 66 19 189/96 99 10/01/16 21:20 66 16 189/96 99 10/01/16 21:19 65 30 H 189/96 99 10/01/16 21:10 70 27 H 197/93 99 10/01/16 21:00 71 14 176/92 99 10/01/16 20:50 75 47 H 176/92 94 L 10/01/16 20:40 60 15 172/100 98 10/01/16 20:30 58 L 14 176/89 98 10/01/16 20:20 66 13 176/89 97 10/01/16 20:10 67 15 210/91 97 10/01/16 20:00 69 12 183/92 98 10/01/16 19:50 70 12 183/92 97 10/01/16 19:40 66 16 156/83 98 10/01/16 19:30 66 18 163/82 98 10/01/16 19:20 72 16 163/82 97 10/01/16 19:10 68 18 173/91 98 10/01/16 19:00 99.1 F 66 17 163/90 97 10/01/16 18:50 65 15 163/90 96 10/01/16 18:40 65 11 L 164/87 97 10/01/16 18:30 83 12 180/96 98 10/01/16 18:20 71 10 L 180/96 98 10/01/16 18:17 98.5 F 65 20 176/92 10/01/16 18:16 65 10/01/16 18:10 71 18 161/92 95 10/01/16 17:39 69 18 187/89 97 10/01/16 17:23 67 18 190/94 96 10/01/16 17:05 70 18 206/104 97 10/01/16 16:36 68 18 202/106 97 10/01/16 16:05 68 18 213/111 98 10/01/16 15:56 68 18 223/109 99 10/01/16 14:55 66 18 226/108 97 10/01/16 14:41 64 18 233/113 97 Intake and Output 10/01/16 10/02/16 10/02/16 22:59 06:59 14:59 Intake Total 300 800 367.533 Output Total 0 0 Balance 300 800 367.533 Intake: IV 220 Sodium Chloride 0.9% 1, 120 000 ml @ 100 mls/hr IV . Q10H [facility] Rx#:[id number] Sodium Chloride 0.9% 1, 100 000 ml @ 20 mls/hr IV . Q24H [place] Rx#:[id number] Intake, IV Titration 300 800 147.533 Amount Clevidipine Butyrate 25 47.533 mg In Empty Bag 1 bag @ 1 MG/HR 2 mls/hr IV .Q24H [place] Rx#:[id number] Sodium Chloride 0.9% 1, 300 800 100 000 ml @ 100 mls/hr IV . Q10H [facility] Rx#:[id number] Output: Urine 0 0 Other: Voiding Method Toilet Toilet Toilet # Voids 1 0 1 # Bowel Movements 1 Weight 86.183 kg 75.7 kg PHYSICAL EXAMINATION: Patient is lying in the bed comfortably, no acute distress, awake alert and oriented.. HEENT: Normocephalic. Neck is supple. Pupils reactive. Nostrils clear. Oral cavity is moist. Ears reveal no drainage. Neck reveals no JVD, carotid bruits, or thyromegaly. CHEST EXAMINATION: Trachea is central. Symmetrical expansion. Lung escamilla clear to auscultation and percussion. CARDIAC: Normal S1, S2 with no gallops. No murmurs ABDOMEN: Soft. Bowel sounds normal. No organomegaly. No abdominal bruits. Extremities: reveal no edema. No clubbing or cyanosis Neurologically awake, alert, oriented x3 with well-coordinated movements. No focal deficits noted Skin: No rash or skin lesions. Psychiatric: Operative. Nonsuicidal Musculoskeletal: No joint swelling or deformity. Normal range of motion. Results CBC & Chem 7: 10/02/16 04:10 10/02/16 12:24 Labs: Abnormal Lab Results - Last 24 Hours (Table) 10/02/16 10/02/16 10/02/16 Range/Units 04:10 04:10 12:24 Plt Count 140 L (150-450) k/uL Potassium 3.2 L (3.5-5.1) mmol/L Triglycerides 167 H (<150) mg/dL Cholesterol 205 H (<200) mg/dL LDL Cholesterol, Calc 138 H (0-99) mg/dL HDL Cholesterol 34 L (40-60) mg/dL TSH 0.461 L (0.465-4.680) mIU/L Thrombosis Risk Factor Assmnt - Choose All That Apply Any of the Below Risk Factors Present?: No Other Risk Factors: Yes Each Risk Factor Represents 2 Points: Age 61-74 years Other congenital or acquired thrombophilia - If yes, enter type in comment: No Thrombosis Risk Factor Assessment Total Risk Factor Score: 2 Thrombosis Risk Factor Assessment Level: Low Risk Assessment and Plan Plan: #1 acute hypertensive urgency. #2 uncontrolled hypertension. Questionable noncompliance #3 hyperlipidemia. Patient refuses to take statins. Saying it makes his leg pain gets worse. #4 history of neck injury 10 years back. Patient says it is work-related. #5 chronic narcotic pain medication use, recently trying to wean off. #6 DVT prophylaxis. Plan Patient will be continued on current blood pressure medications. On Coreg, losartan and Norvasc. We will rule out secondary hypertension causes. And follow closely. Cardiology and pulmonary on board. Further recommendations based on the clinical course. Time with Patient: Greater than 30
[2016-10-02] MEDS ORDERED: Potassium Replacement Protocol 1 EACH MISC MISCELLANE PRN (19:14)
--- NOTE | 2016-10-02 19:45 | ECHOF ---
Referral Reason:HTN urgency MEASUREMENTS -------- HEIGHT: 182.9 cm WEIGHT: 75.3 kg BP: 159/78 IVSd: 1.4 cm (0.6 - 1.1) LVIDd: 4.7 cm (3.9 - 5.3) LVPWd: 1.3 cm (0.6 - 1.1) IVSs: 1.5 cm LVIDs: 3.6 cm LVPWs: 1.6 cm LA Diam: 3.2 cm (2.7 - 3.8) LAESV Index (A-L): 31.79 ml/m Ao Diam: 3.8 cm (2.0 - 3.7) AV Cusp: 1.5 cm (1.5 - 2.6) LA Diam: 3.2 cm (2.7 - 3.8) MV EXCURSION: 20.130 mm (> 18.000) MV EF SLOPE: 74 mm/s (70 - 150) EPSS: 0.2 cm MV E Panchito: 0.64 m/s MV DecT: 200 ms MV A Panchito: 0.98 m/s MV E/A Ratio: 0.66 RAP: 5.00 mmHg RVSP: 13.22 mmHg FINDINGS -------- Sinus rhythm. This was a technically adequate study. There is moderate concentric left ventricular hypertrophy. Overall left ventricular systolic function is normal with, an EF between 55 - 60 %. The right ventricle is normal in size. LA is midly dilated 29-33ml/m2. The right atrial size is normal. The aortic valve is trileaflet, and appears structurally normal. No aortic stenosis or regurgitation. Mild mitral annular calcification present. Mild mitral regurgitation is present. Mild tricuspid regurgitation present. There is no evidence of pulmonary hypertension. The right ventricular systolic pressure, as measured by Doppler, is 13.22mmHg. Trace/mild (physiologic) pulmonic regurgitation. The aortic root size is normal. There is no pericardial effusion. CONCLUSIONS -------- 1. There is moderate concentric left ventricular hypertrophy. 2. There is no pericardial effusion. 3. Overall left ventricular systolic function is normal with, an EF between 55 - 60 %. 4. LA is midly dilated 29-33ml/m2. 5. Mild mitral annular calcification present. 6. Mild mitral regurgitation is present. 7. Mild tricuspid regurgitation present. 8. There is no evidence of pulmonary hypertension. 9. The right ventricular systolic pressure, as measured by Doppler, is 13.22mmHg. 10. Trace/mild (physiologic) pulmonic regurgitation. TURN DOWN WORKER: Madiha Davenport RDCS
[2016-10-02] MEDS ORDERED: POTASSIUM CHLORIDE ER 20 MEQ TAB.ER PO SCH (20:00)
[2016-10-02] MEDS: amLODIPine 10 MG TAB PO SCH (20:08)
[2016-10-02] MEDS: FUROSEMIDE 10 MG/ML 2 ML VIAL IV SCH (20:11)
[2016-10-02] MEDS ORDERED: ATORVASTATIN 40 MG TAB PO SCH (21:00)
[2016-10-03] MEDS: LABETALOL 5 MG/ML VIAL MDV IVP PRN (01:50)
[2016-10-03] MEDS: HYDROmorphone 1 MG/ML 1 ML SYRINGE IVP PRN ×3 (01:51→21:19)
[2016-10-03 05:08] LABS: Anion Gap 8 mmol/L; Blood Urea Nitrogen 18 mg/dL (9-20); Calcium 9.6 mg/dL (8.4-10.2); Carbon Dioxide 27 mmol/L (22-30); Chloride 105 mmol/L (98-107); Glucose 130 mg/dL (74-99); Non-African American GFR(MDRD) >60 (>60 ml/min/1.73 sqM); Sodium 140 mmol/L (137-145)
[2016-10-03 05:11] LABS: Basophils % (A) 0 %; CH 32.5; CHCM 34.1; Eosinophils # (A) 0.5 k/uL (0-0.7); Eosinophils % (A) 4 %; HCT 51.9 % (39.0-53.0); HDW 2.42; HGB 17.5 gm/dL (13.0-17.5); Luc # (Auto) 0.14; Luc % (Auto) 1; Lymphocytes # (A) 2.1 k/uL (1.0-4.8); Lymphocytes % (A) 17 %; MCH 32.3 pg (25.0-35.0); MCHC 33.8 g/dL (31.0-37.0); MCV 95.6 fL (80.0-100.0); Mean Platelet Volume 7.8; Monocytes # (A) 0.5 k/uL (0-1.0); Monocytes % (A) 4 %; Neutrophils # (A) 9.1 k/uL (1.3-7.7); Neutrophils % (A) 74 %; RBC 5.43 m/uL (4.30-5.90); RDW 13.1 % (11.5-15.5); WBC 12.3 k/uL (3.8-10.6); WBC (Perox) 11.83
[2016-10-03] MEDS: LOSARTAN 50 MG TAB PO SCH (08:05)
[2016-10-03] MEDS: ENOXAPARIN 40 MG/0.4 ML SYRINGE SQ SCH (08:05)
[2016-10-03] MEDS: CARVEDILOL 12.5 MG TAB PO SCH ×2 (08:06→17:41)
[2016-10-03] MEDS: MORPHINE SULFATE 4 MG/ML SYRINGE IVP PRN ×3 (08:08→23:41)
[2016-10-03] MEDS: ALPRAZolam 0.5 MG TAB PO PRN ×2 (08:56→21:19)
[2016-10-03] MEDS: TRIAMTERENE-HCTZ 37.5-25MG 1 EACH CAP PO SCH (08:56)
--- NOTE | 2016-10-03 09:41 | US ---
EXAMINATION TYPE: US renal artery duplex complet DATE OF EXAM: 10/03/2016 COMPARISON: NONE CLINICAL HISTORY: renal artery stenosis. uncontrolled HTN x one week, previously controlled for 10 ye ars. MEASUREMENTS: RENAL SIZE: Rt Kidney: 12.1 x 4.7 x 5.7 cm Lt Kidney: 12.0 x 5.6 x 5.8 cm RESISTANCE INDEX Right: 0.60 Left: 0.60 RA/AO RATIO (< 3.5 ) Right: 1.5 Left: 1.4 RA VELOCITY ( < 180 cm/s) Right: 115 Left: 110 Renals are unremarkable, aorta measures 2.9 cm distally compatible with ectasia or borderline aneurys m.. No evidence for renal artery stenosis by ultrasound criteria. Good upstroke on segmentals at krystal l hilum, low resistive waveforms throughout. Exam done portable in ICU. IMPRESSION: No diagnostic evidence of significant renal artery stenosis. Aorta is somewhat ectatic distally measu ring 2.9 cm compatible with severe ectasia or borderline aneurysm.
--- NOTE | 2016-10-03 10:16 | P.PN ---
Subjective This a very pleasant 66-year-old male with a history of chronic pain and hypertension. Previously was on Coreg 12.5 mg twice a day and losartan 100 mg for his blood pressure control. Apparently the patient been somewhat noncompliant with medications and apparently was noted to have very high blood pressures in the emergency room. He satisfied all the criteria for hypertensive urgency/emergency. There was no apparent end organ involvement so is more likely hypertensive urgency. His systolic blood pressure was more than 200 and his diastolic blood pressure was more than 100. He denies any chest pain chest discomfort no shortness of breath no visual disturbance no dizziness no headache no blurred vision. No chest pain or no other complaints for that matter. Nothing that would suggest hypertensive emergency. The patient's currently resting comfortably in the ICU. The patient is seen again today 10/03/2016 in follow-up in the intensive care unit. He is awake and alert in no acute distress. He is still having ongoing issues with hypertension. His cleviprex was discontinued at approximately 5 PM last night and he was initiated on Norvasc per cardiology. He is also on Coreg 12.5 twice a day, losartan 150 mg daily and Dyazide. Systolic pressure still remains in the 170s. Renal artery duplex revealed no evidence of renal artery stenosis. Aldosterone and metanephrine labs are still pending. He denies any shortness of breath, cough or congestion. He is maintaining good O2 saturations in the 90s on room air. He denies any chest pain, palpitations lightheadedness or dizziness. Objective - Vital Signs Vital signs: Vital Signs Temp 98.1 F 10/02/16 20:00 Pulse 62 10/03/16 09:00 Resp 26 H 10/03/16 09:00 BP 174/99 10/03/16 09:00 Pulse Ox 97 10/03/16 09:00 Intake & Output 10/02/16 10/03/16 10/03/16 18:59 06:59 18:59 Intake Total 500.933 460 40 Output Total 675 400 450 Balance -174.067 60 -410 Weight 74.9 kg Intake: IV 320 220 40 Sodium Chloride 0.9% 1, 120 000 ml @ 100 mls/hr IV . Q10H [facility] Rx#:[id number] Sodium Chloride 0.9% 1, 200 220 40 000 ml @ 20 mls/hr IV . Q24H [facility] Rx#:[id number] Intake, IV Titration 180.933 Amount Clevidipine Butyrate 25 80.933 mg In Empty Bag 1 bag @ 1 MG/HR 2 mls/hr IV .Q24H [facility] Rx#:[id number] Sodium Chloride 0.9% 1, 100 000 ml @ 100 mls/hr IV . Q10H [facility] Rx#:[id number] Oral 240 Output: Urine 675 400 450 Other: Voiding Method Toilet Toilet Toilet Urinal Urinal # Voids 1 0 # Bowel Movements 1 1 - Exam GENERAL EXAM: Alert, active, comfortable in no apparent distress. HEAD: Normocephalic. EYES: Normal reaction of pupils, equal size. NOSE: Clear with pink turbinates. THROAT: No erythema or exudates. NECK: No masses, no JVD. CHEST: No chest wall deformity. LUNGS: Equal air entry with no crackles, wheeze, rhonchi or dullness. CVS: S1 and S2 normal with no audible murmurs, regular rhythm. ABDOMEN: No hepatosplenomegaly, normal bowel sounds, no guarding or rigidity. SPINE: No scoliosis or deformity SKIN: No rashes CENTRAL NERVOUS SYSTEM: No focal deficits, tone is normal in all 4 extremities. Extremities: There is no significant peripheral edema. No clubbing, no cyanosis. Peripheral pulses are intact. - Labs CBC & Chem 7: 10/03/16 04:31 10/03/16 04:31 Labs: Abnormal Lab Results - Last 24 Hours (Table) 10/02/16 10/03/16 10/03/16 Range/Units 12:24 04:31 04:31 WBC 12.3 H (3.8-10.6) k/uL Neutrophils # 9.1 H (1.3-7.7) k/uL Glucose 130 H (74-99) mg/dL Triglycerides 167 H (<150) mg/dL Cholesterol 205 H (<200) mg/dL LDL Cholesterol, Calc 138 H (0-99) mg/dL HDL Cholesterol 34 L (40-60) mg/dL TSH 0.461 L (0.465-4.680) mIU/L Assessment and Plan Plan: Impression: #1 Hypertensive urgency #2 Hyperlipidemia. #3 Chronic pain syndrome. Plan: The patient was seen and evaluated by Dr. Guaman. The patient is cleared for transfer out of the intensive care unit today. He'll go to the selective care unit with close blood pressure monitoring. Cardiology is on the case regarding the hypertension. We will consult Dr. Aguilar who manages his chronic pain. We will continue to follow and make further recommendations based on his clinical status.
--- NOTE | 2016-10-03 10:27 | PN ---
Dain is sitting up in bed. His blood pressure is still elevated. He is quite anxious. He has a home situation regarding his son. He was admitted with very high blood pressures and yesterday I added Amlodipine 10 mg po daily in the evening and increased the a.m. dose of Losartan to 150 mg twice a day. In addition, renal artery Doppler were ordered, ( ) levels and cortisol and TSH were ordered. He denies any chest discomfort. He wants to go home and I have asked him not to. His blood pressure was 109/70 and 181/90 and 185/92 mmHg. He is very anxious. Heart rates are in the 70s and 80s. He has occasional PVCs. Heart sounds are normal. No murmurs or gallops. Somewhat irregular due to premature beats. Breath sounds are normal. Abdomen soft, nontender. Extremities warm, no edema. IMPRESSION: 1. Uncontrolled hypertension. 2. History of dyslipidemia. 3. History of chronic leg pain on pain medications. 4. Admitted with hypertensive urgency. 5. History of PVCs and hence he was given beta blockers at [facility] many years back. SUGGEST: Add Dyazide. Continue Losartan 150 mg in the morning. Continue Amlodipine 10 mg in the evening and continue Coreg for now 12.5 mg twice daily. We will wait for serum ( ). I reviewed his labs. His white count is 12.3. Electrolytes are normal. Renal function is normal. His triglycerides at 167. Total cholesterol 205. LDL 138. HDL 34 and TSH is low and suppressed. This needs to be evaluated. I would defer this to the medical team. Cortisol level is normal and is 5. I will follow him as an outpatient. [facility] CAMPUSAdrián
[2016-10-03] MEDS: SODIUM CHLORIDE 0.9% 1,000 ML IV SCH (13:18)
[2016-10-03] MEDS: amLODIPine 10 MG TAB PO SCH (21:19)
--- NOTE | 2016-10-03 22:59 | P.PN ---
Subjective Principal diagnosis: Hypertensive urgency Mr. Jones is a 66-year-old male with a known history of hypertension hyperlipidemia and chronic leg pain was sent from neurologists office with uncontrolled hypertension. Patient was found to be in hypertensive urgency when he came to ER. Patient does take Coreg and losartan at home. patient is on chronic pain medications with fentanyl patch and Percocet for his chronic leg pain. Patient was taking 100 g of fentanyl patch and has been cutting down to 25 g. Patient says that he had a work-related neck injury injury about 10 years back and will and has seen multiple physicians and also had imazings including the MRI previously. He went to see neurologist in the office for his right leg pain. Patient was found to have hypertensive urgency and was sent to ER. Patient has been taking blood pressure medications for the past 10 years. Patient otherwise denied any complaints of chest pain OF SHORT OF NO HEADACHE OR DIZZINESS. NO NAUSEA VOMITING OR ABDOMINAL PAIN. BREATH. No recent illnesses. Patient is currently being monitored in the MICU and being worked up for secondary hypertension. His TSH level is 0.461 and cortisol level 4 2-D echo and renal arterial duplex was ordered. Serum catecholamines and Aldosterone level was ordered. EKG showed sinus bradycardia with heart rate of 59 Chest x-ray showed no acute cardiopulmonary process. 10/03/2016 Blood pressure is fairly controlled today with SBP in 160s. Patient did improve symptomatically and anxiety improved with benzodiazepines. Aldosterone level 7.7. Pt. does have slightly low TSH level but free T4 level within normal limits at 1.18 Complaints of chest pain or short of breath. No nausea vomiting or abdominal pain. No other acute overnight tissues Patient is being transferred to telemetry unit today. Objective - Vital Signs Vital signs: Vital Signs Temp 98.2 F 10/03/16 20:00 Pulse 67 10/03/16 20:00 Resp 16 10/03/16 20:00 BP 160/88 10/03/16 20:00 Pulse Ox 96 10/03/16 20:00 Intake & Output 10/03/16 10/03/16 10/04/16 06:59 18:59 06:59 Intake Total 460 80 Output Total 400 450 Balance 60 -370 Weight 74.9 kg Intake: IV 220 80 Sodium Chloride 0.9% 1, 220 80 000 ml @ 20 mls/hr IV . Q24H [facility] Rx#:[id number] Oral 240 Output: Urine 400 450 Other: Voiding Method Toilet Toilet Urinal Urinal # Voids 0 # Bowel Movements 1 - Exam PHYSICAL EXAMINATION: Patient is lying in the bed comfortably, no acute distress, awake alert and oriented.. Anxious HEENT: Normocephalic. Neck is supple. Pupils reactive. Nostrils clear. Oral cavity is moist. Ears reveal no drainage. Neck reveals no JVD, carotid bruits, or thyromegaly. CHEST EXAMINATION: Trachea is central. Symmetrical expansion. Lung escamilla clear to auscultation and percussion. CARDIAC: Normal S1, S2 with no gallops. No murmurs ABDOMEN: Soft. Bowel sounds normal. No organomegaly. No abdominal bruits. Extremities reveal no edema. No clubbing or cyanosis Neurologically awake, alert, oriented x3 with well-coordinated movements. Skin: no rash or skin lesions Musculoskeletal: no joint swelling or deformity. - Labs CBC & Chem 7: 10/03/16 04:31 10/03/16 04:31 Labs: Abnormal Lab Results - Last 24 Hours (Table) 10/03/16 10/03/16 Range/Units 04:31 04:31 WBC 12.3 H (3.8-10.6) k/uL Neutrophils # 9.1 H (1.3-7.7) k/uL Glucose 130 H (74-99) mg/dL Assessment and Plan Plan: #1 acute hypertensive urgency. #2 uncontrolled hypertension. Questionable noncompliance #3 hyperlipidemia. Patient refuses to take statins. Saying it makes his leg pain gets worse. #4 history of neck injury 10 years back. Patient says it is work-related. #5 chronic narcotic pain medication use, recently trying to wean off. #6 DVT prophylaxis. Plan Patient will be continued on current blood pressure medications. On Coreg, losartan and Norvasc. Added Dyazide. We will rule out secondary hypertension causes. And follow closely. Cardiology and pulmonary on board. Further recommendations based on the clinical course.
[2016-10-04] MEDS: HYDROmorphone 1 MG/ML 1 ML SYRINGE IVP PRN ×3 (05:13→14:39)
[2016-10-04] MEDS: LABETALOL 5 MG/ML VIAL MDV IVP PRN (05:14)
[2016-10-04] MEDS: CARVEDILOL 12.5 MG TAB PO SCH (06:16)
[2016-10-04] MEDS: LOSARTAN 50 MG TAB PO SCH (08:22)
[2016-10-04] MEDS: ENOXAPARIN 40 MG/0.4 ML SYRINGE SQ SCH (08:22)
[2016-10-04] MEDS: TRIAMTERENE-HCTZ 37.5-25MG 1 EACH CAP PO SCH (08:22)
[2016-10-04] MEDS: MORPHINE SULFATE 4 MG/ML SYRINGE IVP PRN ×2 (08:27→12:32)
[2016-10-04] MEDS: ALPRAZolam 0.5 MG TAB PO PRN (08:35)
[2016-10-04 09:34] VITALS: RESP 18
[2016-10-04] MEDS: SODIUM CHLORIDE 0.9% 1,000 ML IV SCH (10:15)
--- NOTE | 2016-10-04 11:21 | P.PN ---
Subjective Progress note dated 10/04/1968 66-year-old male who was in the ICU for a couple days with hypertensive urgency. The patient really had no evidence of end organ involvement. Renal ultrasound did not reveal evidence of renal artery stenosis. The patient was placed on Coreg 12.5 mg twice a day losartan 150 mg a day Dyazide daily as well as amlodipine or Norvasc 10 mg a day. His blood pressure is coming under better control. Not sure about discharge. May be in in the next day or so. Patient is not having any difficulty at this time with his breathing. No coughing no wheezing. He blames a lot of his blood pressure issues on pain and also anxiety or stress. Objective - Vital Signs Vital signs: Vital Signs Temp 97.6 F 10/04/16 08:00 Pulse 63 10/04/16 08:00 Resp 18 10/04/16 08:00 BP 163/79 10/04/16 08:00 Pulse Ox 98 10/04/16 08:00 Intake & Output 10/03/16 10/04/16 10/04/16 18:59 06:59 18:59 Intake Total 80 360 118 Output Total 450 Balance -370 360 118 Weight 80.9 kg Intake: IV 80 Sodium Chloride 0.9% 1, 80 000 ml @ 20 mls/hr IV . Q24H [facility] Rx#:[id number] Oral 360 118 Output: Urine 450 Other: Voiding Method Toilet Toilet Urinal Urinal # Voids 2 1 - Exam No acute distress, oriented 3. HEENT examination is grossly unremarkable. Mucous membranes are moist. No oral lesions. Neck supple. Full range of motion. No adenopathy or thyromegaly. Cardiovascular examination reveals regular rhythm rate. Heart rate mid 80s. S1 -S2 normal. No S3.. No S4. Lungs are clear breath sounds are equal. No wheezes rhonchi or crackles. Abdomen soft bowel sounds are heard. Extremities are intact. No cyanosis clubbing or edema. Skin without rash. Neurologic examination is nonfocal. - Labs CBC & Chem 7: 10/03/16 04:31 10/03/16 04:31 Assessment and Plan (1) Hypertensive urgency Status: Acute (2) Uncontrolled hypertension Status: Acute Plan: Plan dated 10/02/2016 The patient's currently not on any supplemental oxygen. His IV is appointment 900 mL an hour. He'll be turned down to KVO. We'll put him on Klonopin the Pleurx to titrate blood pressure to less than 160 systolic and less than 110 diastolic. The patient will have a cardiology consultation and echocardiogram. We'll do some cardiac enzymes. We'll DC the hydralazine and the clonidine patch. We'll use IV labetalol for additional blood pressure support. We'll get him back on his Coreg 12.5 mg twice a day and losartan 100 mg a day. Plan dated 10/04/2016 The patient's blood pressure seems to be under better control with the Coreg losartan Dyazide and amlodipine. We'll continue to follow. The patient's hoping to be discharged soon. The patient will also need chronic treatment for his chronic pain and anxiety. Additional recommendations suggestions are forthcoming. Time with Patient: Less than 30
--- NOTE | 2016-10-04 12:17 | P.PN ---
Subjective Principal diagnosis: HTN This is a 66-year-old gentleman with history of hyperlipidemia, hypertension, chronic leg pain, nicotine dependence, who presented to the hospital with accelerated hypertension. Dr. Knox made several medication adjustments, blood pressure this morning in the 160 range. Echocardiogram with Doppler study was performed which revealed normal left ventricular systolic function. Renal artery ultrasound was also performed which did not reveal any significant renal artery stenosis. Cholesterol 205, LDL 138, triglycerides 167, HDL 34. Patient has been up ambulating in the hallway today, asymptomatic. She should be able to be discharged home today from cardiology's perspective. We will make him a follow-up appointment to see Dr. Vallejo and Gabbi in the office in 2 weeks. Objective - Vital Signs Vital signs: Vital Signs Temp 97.6 F 10/04/16 08:00 Pulse 63 10/04/16 08:00 Resp 18 10/04/16 08:00 BP 163/79 10/04/16 08:00 Pulse Ox 98 10/04/16 08:00 Intake & Output 10/03/16 10/04/16 10/04/16 18:59 06:59 18:59 Intake Total 80 360 118 Output Total 450 Balance -370 360 118 Weight 80.9 kg Intake: IV 80 Sodium Chloride 0.9% 1, 80 000 ml @ 20 mls/hr IV . Q24H [facility] Rx#:[id number] Oral 360 118 Output: Urine 450 Other: Voiding Method Toilet Toilet Urinal Urinal # Voids 2 1 - Exam PHYSICAL EXAMINATION: HEENT: Head is atraumatic, normocephalic. Pupils equal, round. Neck is supple. There is no elevated jugular venous pressure. HEART EXAMINATION: Heart S1, S2 normal. No murmur or gallop heard. CHEST EXAMINATION: Lungs are clear to auscultation and precussion. No chest wall tenderness is noted on palpation or with deep breathing. ABDOMEN: Soft, nontender. Bowel sounds are heard. No organomegaly noted. EXTREMITIES: 2+ peripheral pulses with no evidence of peripheral edema and no calf tenderness noted. NEUROLOGIC patient is awake, alert and oriented -3. . - Labs CBC & Chem 7: 10/03/16 04:31 10/03/16 04:31 Assessment and Plan (1) Hyperlipemia Status: Acute (2) Nicotine dependence Status: Acute (3) Hypertensive urgency Status: Acute Plan: From cardiology's perspective, patient may be able to be discharged home today. We will make him a follow-up appointment to see Dr. Vallejo and Gabbi in the office in 2 weeks. We'll also start the patient on a statin. DNP note has been reviewed, I agree with a documented findings and plan of care. Patient was seen and examined.
[2016-10-04] MEDS ORDERED: ATORVASTATIN 40 MG TAB PO SCH (12:30)
[2016-10-04 12:50] VITALS: BP 136/88; PULSE 69; TEMP 97.1
--- NOTE | 2016-10-04 14:46 | P.DS ---
Providers Date of admission: 10/01/16 16:26 Expected date of discharge: 10/04/16 Attending physician: Samuel Deras Consults: 10/01/16 17:41 Consult Physician Urgent Consulting Provider: Randy Guaman Consult Reason/Comments: icu management Do you want consulting provider notified?: Yes 10/02/16 09:47 Consult Physician Urgent Consulting Provider: Ranulfo Vallejo Consult Reason/Comments: HTN urgency Do you want consulting provider notified?: Already Contacted 10/03/16 11:01 Consult Physician Routine Consulting Provider: Mel Montenegro Consult Reason/Comments: pain management - previously to see [facility] outpt Do you want consulting provider notified?: Already Contacted Primary care physician: Valentine Langston Hospital Course: Final Diagnoses: #1 acute hypertensive urgency. #2 uncontrolled hypertension. Questionable noncompliance #3 hyperlipidemia. Patient refuses to take statins. Saying it makes his leg pain gets worse. #4 history of neck injury 10 years back. Patient says it is work-related. #5 chronic narcotic pain medication use, recently trying to wean off. #6 DVT prophylaxis. Hospital course:Mr. Jones is a 66-year-old male with a known history of hypertension hyperlipidemia and chronic leg pain was sent from neurologists office with uncontrolled hypertension, in a patient who takes Coreg and losartan at home. patient is on chronic pain medications with fentanyl patch and Percocet for his chronic leg pain. Patient was taking 100 g of fentanyl patch and has been cutting down to 25 g. He went to see neurologist in the office for his right leg pain, discovered hypertensive urgency and was sent to ER. Patient has been taking blood pressure medications for the past 10 years. Evaluated by cardiology and pulmonary. Patient was monitored in the MICU and worked up for secondary hypertension. 2-D echo reported normal LV function, EF 55-60%, no pulmonary hypertension, moderate concentric left ventricular hypertrophy .EKG showed sinus bradycardia with heart rate of 59.Chest x-ray showed no acute cardiopulmonary process.Pt. does have slightly low TSH level but free T4 level within normal limits at 1.18. Aldosterone level 07.7, cortisol 5. Medications adjusted. Significant clinical improvement. Patient has been cleared for discharge by all consults. Patient is being discharged home in a stable condition with guarded prognosis. Vital Signs - 24 hr 0810/03/16 10/03/16 15:35 16:24 20:00 Temperature 98.1 F 98.2 F Pulse Rate 76 Pulse Rate [ 67 Right Pulse Oximetery] Respiratory 15 18 16 Rate Blood Pressure 172/105 Blood Pressure 160/88 [Left Arm] O2 Sat by Pulse 93 L 96 Oximetry 10/04/16 10/04/16 10/04/16 00:00 04:00 06:17 Temperature 97.5 F L 97.2 F L Pulse Rate Pulse Rate [ 68 71 Right Pulse Oximetery] Respiratory 16 16 Rate Blood Pressure Blood Pressure 165/96 180/100 181/94 [Left Arm] O2 Sat by Pulse 97 96 Oximetry 10/04/16 10/04/16 08:00 12:00 Temperature 97.6 F 97.1 F L Pulse Rate Pulse Rate [ 63 69 Right Pulse Oximetery] Respiratory 18 18 Rate Blood Pressure Blood Pressure 163/79 136/88 [Left Arm] O2 Sat by Pulse 98 97 Oximetry The impression and plan of care has been dictated as directed. : I performed a H&P examination of this patient and discussed the same with the dictator. I agree with the dictator's note. Any additional findings/opinions/ etc. will be noted. Patient Condition at Discharge: Stable Plan - Discharge Summary New Discharge Prescriptions: New amLODIPine [Norvasc] 10 mg PO HS #30 tab Triamterene-Hctz 37.5-25Mg [Dyazide 37.5-25 Capsule] 1 each PO DAILY #30 cap Atorvastatin [Lipitor] 40 mg PO DAILY #30 tab Losartan [Cozaar] 150 mg PO DAILY #90 tab Continue oxyCODONE-APAP 10-325MG [Percocet 10-325 mg] 1 tab PO Q6HR PRN PRN Reason: Pain Gabapentin [Neurontin] 300 mg PO HS fentaNYL [Duragesic 25MCG/HR] 25 mcg TRANSDERM Q72H Carvedilol [Coreg] 12.5 mg PO BID Discontinued Losartan Potassium 100 mg PO DAILY Discharge Medication List Carvedilol [Coreg] 12.5 mg PO BID 10/01/16 [History] Gabapentin [Neurontin] 300 mg PO HS 10/01/16 [History] fentaNYL [Duragesic 25MCG/HR] 25 mcg TRANSDERM Q72H 10/01/16 [History] oxyCODONE-APAP 10-325MG [Percocet 10-325 mg] 1 tab PO Q6HR PRN 10/01/16 [History ] Atorvastatin [Lipitor] 40 mg PO DAILY #30 tab 10/04/16 [Rx] Losartan [Cozaar] 150 mg PO DAILY #90 tab 10/04/16 [Rx] Triamterene-Hctz 37.5-25Mg [Dyazide 37.5-25 Capsule] 1 each PO DAILY #30 cap [Rx] amLODIPine [Norvasc] 10 mg PO HS #30 tab 10/04/16 [Rx] Follow up Appointment(s)/Referral(s): Ranulfo Vallejo MD [STAFF PHYSICIAN] - 1 Week Gabbi Mendez NPC [Nurse Practitioner] - 1 Week Valentine Langston MD [Primary Care Provider] - 3 Days Jose Aguilar MD [STAFF PHYSICIAN] - 1 Week (pain management) Ambulatory/Diagnostic Orders: Complete Blood Count w/diff [LAB.AMB] Time Frame: 3 Days, Location: Determined By Patient Patient Instructions/Handouts: Chronic Hypertension (ED), Hypertensive Crisis ( ED), Hypertension (ED)
[2016-10-06 13:36] LABS: Metanephrine, Free 44 pg/mL (< OR = 57); Total, Free (MN + NMN) 118 pg/mL (< OR = 205)
== END 2016-10-04 16:04 | disposition home or self-care (01) | DRG 305 ==
LOC: EC 13:13 → 6ICU 16:26 → 6SEL 10-03 16:53
PROVIDERS: ADMIT Hospitalist; ATTEND Hospitalist
DX: I16.0 Hypertensive urgency (principal); I11.9 Hypertensive heart disease without heart failure; R00.1 Bradycardia, unspecified; E78.5 Hyperlipidemia, unspecified; G89.4 Chronic pain syndrome; M54.9 Dorsalgia, unspecified; T46.6X6A Underdosing of antihyperlipidemic and antiarteriosclerotic drugs, initial encounter; M79.604 Pain in right leg; F41.9 Anxiety disorder, unspecified; F17.200 Nicotine dependence, unspecified, uncomplicated; R94.6 Abnormal results of thyroid function studies; Z91.14 Patient's other noncompliance with medication regimen; Z79.891 Long term (current) use of opiate analgesic; Z87.828 Personal history of other (healed) physical injury and trauma; Z79.899 Other long term (current) drug therapy
CPT/HCPCS: 36415; 71020; 80048; 80053; 80061; 82088; 82533; 82550; 82553; 83735; 83835; 83880; 84100; 84132; 84439; 84443; 84484; 85025; 85027; 93005; 93306; 93975; 96374; 96375; 96376; 99285

== ENCOUNTER → 2016-10-09 | Outpatient (CLI) | payer OTHER, MEDICARE ==
--- NOTE | 2016-10-09 14:39 | XR ---
EXAMINATION TYPE: XR lumbosacral spine min 4V , 5 VIEWS DATE OF EXAM ORDERED: 10/09/2016 HISTORY: [id number] lumbago. COMPARISON: None. FINDINGS: Vertebral body height and alignment are maintained. There is no spondylolysis or spondylol isthesis. There is disc space loss at L5-S1 as well as T12-L1. This hypertrophic spondylosis most mar ked at T12-L1. There is mild, diffuse facet arthropathy most severe in the lower lumbar facets. The p edicles are intact. IMPRESSION: 1. NO ACUTE OSSEOUS LESION. 2. MILD DEGENERATIVE CHANGE.
== END | disposition home or self-care (01) ==
LOC: RADXRYALE 14:14
PROVIDERS: ATTEND Psychiatry & Neurology Pain Medicine
DX: M47.817 Spondylosis without myelopathy or radiculopathy, lumbosacral region (principal)
CPT/HCPCS: 72110

== ENCOUNTER → 2016-10-18 | Outpatient (CLI) | payer OTHER, MEDICARE ==
--- NOTE | 2016-10-18 23:06 | MR ---
EXAMINATION TYPE: MR lumbar spine wo con DATE OF EXAM: 10/18/2016 COMPARISON: Lumbar spine x-ray October 09, 2016. HISTORY: Lumbago per order. Back and bilateral leg pain for 6 years per patient. TECHNIQUE: Multiplanar, multisequence imaging of the lumbar spine is performed without IV contrast. FINDINGS: Sagittal images of the lumbar spine show vertebral body heights to appear satisfactory. The re are multilevel prominent Schmorl nodes however noted. There is straightening of lumbar spine on sa gittal images. Multilevel disc desiccation is seen. There is moderate to advanced disc space narrowin g L5-S1 level with mild to moderate anterior spurring. There is additional mild multilevel anterior s purring. Small posterior disc herniation L5-S1 level as seen on sagittal images. The conus medullari s is normal in position and signal ending at inferior L1 level. The bone marrow signal intensity is within normal limits. Axial images at T12-L1 and L1-L2 levels show mild facet degenerative changes bilaterally but spinal c anal is preserved and bilateral neural foramina are patent. Axial images at L2-L3 and L3-L4 levels are felt within normal limits. Axial images at L4-L5 level show broad-based posterior disc protrusion mildly effacing anterior theca l sac on axial image 8. There is mild facet degenerative change and ligamentum flavum hypertrophy. Th ere is moderate to severe bilateral neural foraminal narrowing with encroachment on both L4 nerves sanchez spected seen best on sagittal image 4 and 13 confirmed on axial image 8. Axial images at L5-S1 level shows central disc protrusion minimally effacing anterior thecal sac. The re is mild to moderate facet degenerative change bilaterally. There is moderate bilateral neural fora royce narrowing with encroachment on both L5 nerve is felt present on sagittal images 4 and 13 confir med on axial image 3. IMPRESSION: Straightening of lumbar spine with multilevel degenerative changes identified, attention to L4-L5 and L5-S1 levels where there appears to be encroachment on bilateral L4 and L5 nerves. Furth er details are noted as discussed above.
== END | disposition home or self-care (01) ==
LOC: RADMRIMAIN 21:12
PROVIDERS: ATTEND Psychiatry & Neurology Pain Medicine
DX: M47.817 Spondylosis without myelopathy or radiculopathy, lumbosacral region (principal)
CPT/HCPCS: 72148

== ENCOUNTER → 2016-11-23 | Outpatient (CLI) | payer OTHER, MEDICARE ==
[2016-11-23 14:59] LABS: Calcium 9.5 mg/dL (8.4-10.2)
[2016-11-27 06:58] LABS: Vitamin E (Alpha Tocopherol) 791 ug/dL (500-1800)
[2016-11-28 22:35] LABS: Vitamin K 74 pg/mL (80-1160)
[2016-12-01 14:14] LABS: Nicotinamide 28 ng/mL; Nicotinic Acid None Detected; Nicotinuric Acid None Detected
== END | disposition home or self-care (01) ==
LOC: LABWHC1 14:04
PROVIDERS: ATTEND Psychiatry & Neurology Pain Medicine
DX: G89.4 Chronic pain syndrome (principal); Z79.899 Other long term (current) drug therapy
CPT/HCPCS: 36415; 82306; 82310; 82550; 83036; 83519; 83735; 84207; 84425; 84446; 84590; 84591; 84597

== ENCOUNTER → 2017-04-24 | Outpatient (CLI) | payer OTHER, MEDICARE ==
--- NOTE | 2017-04-24 10:28 | FL ---
EXAMINATION TYPE: FL UGI DATE OF EXAM: 04/24/2017 COMPARISON: NONE HISTORY: Throat pain indigestion and reflux x2 months, history of father with esophageal cancer TECHNIQUE:Double air-contrast technique is utilized to evaluate the Upper GI. Findings: Fluoroscopy time: 2 minutes 14 seconds. Images: 55 Esophagus follows a normal caliber course and contour to the gastroesophageal junction. Gastroesophag eal junction opens to normal caliber. There is complete stripping of the esophageal bolus in the hori zontal drinking position. A few tertiary contractions are evident during the examination. Small hiata l hernia which is self reducing is evident during the exam. Fundus body and antrum of the stomach appear normal. The gastric folds are at the upper limits of nor mal for size. There is some hesitancy of contrast entering the duodenum. Duodenal folds are hypertrop hied. There is a suspicion of a duodenal ulcer in the first portion of the duodenum along the superio r border. IMPRESSIONS: 1. Mild presbyesophagus. 2. Mild gastritis may be present. 3. Duodenitis. 4. Suspected ulcer along the superior first portion of the duodenum.
== END | disposition home or self-care (01) ==
LOC: RADFLMAIN 08:08
PROVIDERS: ATTEND Internal Medicine
DX: K22.8 Other specified diseases of esophagus (principal); K29.70 Gastritis, unspecified, without bleeding
CPT/HCPCS: 74240